=== PATIENT | male | born 1940 | race Native Hawaiian/Other Pacific Islander ===

== ENCOUNTER 2016-05-14 09:52 | Outpatient (CLI) | payer OTHER | END 2016-05-14 19:44 | disposition home or self-care (01) | LOC: MRI 09:52 | DX: F03.91 Unspecified dementia, unspecified severity, with behavioral disturbance (principal) ==

== ENCOUNTER 2016-09-13 09:33 | Outpatient (CLI) | payer OTHER | END 2016-09-13 10:45 | disposition home or self-care (01) | LOC: RAD 09:33 | DX: J40 Bronchitis, not specified as acute or chronic (principal) ==

== ENCOUNTER 2016-09-25 09:04 | Outpatient (CLI) | payer OTHER ==
[2016-09-25 09:25] LABS: SODIUM 140 mmol/L (136-145)
== END 2016-09-25 19:05 | disposition home or self-care (01) ==
LOC: CT 09:04
PROVIDERS: Internal Medicine
DX: R91.8 Other nonspecific abnormal finding of lung field (principal)
CPT/HCPCS: 36415; 80048; Q9963

== ENCOUNTER 2017-03-14 08:43 | Outpatient (CLI) | payer OTHER ==
[2017-03-14 10:13] LABS: PLATELET COUNT 170 K/uL (142-355)
[2017-03-14 10:21] LABS: POTASSIUM 4.2 mmol/L (3.6-5.2); SODIUM 139 mmol/L (136-145)
== END 2017-03-14 09:45 | disposition home or self-care (01) ==
LOC: LABW 08:43
PROVIDERS: Internal Medicine
DX: I25.10 Atherosclerotic heart disease of native coronary artery without angina pectoris (principal); Z79.899 Other long term (current) drug therapy; Z51.81 Encounter for therapeutic drug level monitoring; R97.20 Elevated prostate specific antigen [PSA]
CPT/HCPCS: 36415; 80053; 80061; 81000; 84153; 84439; 84443; 85027

== ENCOUNTER 2017-07-28 06:10 | Outpatient (CLI) | payer OTHER ==
[2017-07-28 06:33] LABS: PLATELET COUNT 215 K/uL (142-355)
[2017-07-28 07:20] LABS: POTASSIUM 3.9 mmol/L (3.6-5.2)
== END 2017-07-28 19:14 | disposition home or self-care (01) ==
LOC: LABW 06:10
PROVIDERS: Internal Medicine
DX: F03.90 Unspecified dementia, unspecified severity, without behavioral disturbance, psychotic disturbance, mood disturbance, and anxiety (principal); R79.89 Other specified abnormal findings of blood chemistry
CPT/HCPCS: 36415; 80053; 80061; 81000; 84439; 84443; 85027

== ENCOUNTER 2017-12-31 15:57 | Outpatient (CLI) | payer OTHER | END 2017-12-31 19:45 | disposition home or self-care (01) | LOC: RAD 15:57 | DX: M17.11 Unilateral primary osteoarthritis, right knee (principal); M79.604 Pain in right leg ==